=== PATIENT | female | born 1955 | race Two or more races ===

== ENCOUNTER 2017-01-13 08:12 | Outpatient (CLI) | payer OTHER ==
[2017-01-13] VITALS (16 sets, daily range): BP systolic 108–133; BP diastolic 59–81
[~2017-01-13] VITALS: Ht 165.1 cm; Wt 93.4 kg
[2017-01-13] MEDS ORDERED: OMEPRAZOLE20 M2 ORAL (08:56)
[2017-01-13] MEDS ORDERED: LEVOTHYROXINE100 MCG ORAL (08:56)
[2017-01-13] MEDS ORDERED: HUMALOG 75/255 UNIT1 SUBQ (08:56)
[2017-01-13] MEDS ORDERED: VITAMIN E400 INTLU ORAL (09:10)
[2017-01-13] MEDS ORDERED: fentaNYL 100 mcg/2 mL IV ONE (09:15)
[2017-01-13] MEDS ORDERED: Midazolam 2mg/2ml Inj IVP ONE (09:15)
[2017-01-13] MEDS ORDERED: Lidocaine 1% Plain 30 ml INJ ONE (09:15)
--- NOTE | 2017-01-13 09:39 | Pre-Procedure Note/Attestation ---
Pre-Procedure Note/Attestation Complete Prior to Procedure Planned Procedure: right Procedure Narrative: us guided core liver biopsy Indications for Procedure Pre-Operative Diagnosis: hep c Attestation I attest that I discussed the nature of the procedure; its benefits; risks and complications; and alternatives (and the risks and benefits of such alternatives ), prior to the procedure, with the patient (or the patient's legal mortician supplies sales representative). I attest that, if there was a reasonable possibility of needing a blood transfusion, the patient (or the patient's legal mortician supplies sales representative) was given the [facility] standardized written summary, pursuant to the Ayo Kaur Blood Safety Act ([place] Health and Safety Code # 1645, as amended). I attest that I re-evaluated the patient just prior to the surgery and that there has been no change in the patient's H&P, except as documented below: ABDI HARRINGTON M.D. Jan 13, 2017 09:39
--- NOTE | 2017-01-13 09:42 | Moderate Sedation - Procedural ---
Moderate Sedation HPI Home Medication Reported Medications Vitamin E (Vitamin E) 400 Unit Capsule, 400 INTLU ORAL DAILY, CAP 01/13/17 Insulin Human Lispro (Humalog) 100 Unit/1 Ml Vial, 25 UNITS SUBQ TID, #1 UNIT 0 Refills 01/13/17 Omeprazole (OMEPRAZOLE) 20 Mg Capsule.dr, 20 MG ORAL DAILY, CAP 01/13/17 Levothyroxine Sodium* (LEVOTHYROXINE SODIUM*) 100 Mcg Tablet, 100 MCG ORAL DAILY , TAB Take in the morning on an empty stomach, at least 30 minutes before food. 01/13/17 Patient History Allergies: Coded Allergies: No Known Allergies (Unverified , 01/13/17) PAST MEDICAL HISTORY: Past Surgeries: Social History: Pre-Procedural Mod Sedation Date: Jan 13, 2017 Pre-Assessment Time: 09:40 Pre-Sedation Assessment: Elective Airway Assessment (Malampati): III Heart: normal Lungs: normal Pre-op Diagnosis: nonalcoholic fatty liver disease Evaluation Hx of untoward rxns to mod sed: No Procedures/Plans: Radiology Plan for Moderate Sedation: Midazolam, Fentanyl ASA Score: II Informed Consent The nature of the procedure/sedation; its benefits; risks and complications; and alternatives (and the risks and benefits of such alternatives) were discussed with the patient (or their legal sales representative womens health), prior to the procedure. All questions were answered to the patient's (or their legal sales representative womens health's) satisfaction and the patient (or their legal sales representative womens health) gave informed consent to the procedure. I attest that I re-evaluated the patient just prior to the surgery and that there has been no change in the patient's H&P, except as documented below: ABDI HARRINGTON M.D. Jan 13, 2017 09:42
[2017-01-13] MEDS ORDERED: Norco 5mg/325mg tab ORAL PRN (12:30)
--- NOTE | 2017-01-13 15:10 | Diagnostic Imaging Report ---
Indication: Hepatitis C Procedure: Informed consent for the procedure was obtained. The risks, benefits, and alternatives to the procedure and conscious sedation were discussed with the patient. We were given verbal and written consent to proceed. The abdomen was prepped and draped in a sterile fashion. Lidocaine was administered for local anesthesia. Dermatotomy was made. Using real-time ultrasound guidance a 16-gauge biopsy device was advanced into the right lobe of the liver and a 2 cm core biopsy was performed. This was performed twice yielding a 1 cm core on the first pass and a 2 cm core on the second pass. There were no complications. The patient tolerated the procedure well. Impression: Status post successful ultrasound guided, nontargeted biopsy of the liver.
--- NOTE | 2017-01-13 16:34 | Diagnostic Imaging Report ---
Indication:Hepatitis C. Technique: Grayscale and duplex Doppler imaging of the abdomen performed. Comparison: None Findings: The liver is prominent in size measuring about 19 cm in the craniocaudal plane. The spleen is enlarged measuring 15 cm. There is no ascites. The liver is echogenic consistent with fatty filtration. High-resolution imaging of the liver surface utilizing high frequency imaging shows no micronodularities. No abnormalities of the gallbladder, demonstrated portion of the pancreas, kidneys identified. The aorta and pancreas are not visualized well due to bowel gas. CBD measures 6 mm. There is no intrahepatic biliary ductal dilatation seen. Impression: Hepatosplenomegaly with fatty infiltration of the liver. Poor demonstration of the pancreas, aorta and the remainder of the retroperitoneum due to bowel gas and body habitus.
== END 2017-01-13 14:30 | disposition home or self-care (01) ==
LOC: ULS 08:12
DX: K76.0 Fatty (change of) liver, not elsewhere classified (principal); R16.2 Hepatomegaly with splenomegaly, not elsewhere classified; B19.20 Unspecified viral hepatitis C without hepatic coma
CPT/HCPCS: 47000; 76700; 76942; J2001; J2250; J3010

== ENCOUNTER 2018-09-03 10:42 | Outpatient (CLI) | payer OTHER ==
[~2018-09-03 10:42] MED LIST: HUMALOG 75/255 UNIT1 SUBQ; LEVOTHYROXINE100 MCG ORAL; OMEPRAZOLE20 M2 ORAL; VITAMIN E400 INTLU ORAL
--- NOTE | 2018-09-03 12:25 | Diagnostic Imaging Report ---
Indication: Abdominal pain, history of hepatitis C Technique: Maradiaga-scale and duplex images of the upper abdomen were obtained. Doppler interrogation of the hepatic and pancreatic vessels Comparison: 01/13/2017 Findings: Gallbladder is unremarkable, without stones, wall thickening, nor pericholecystic fluid. Sonographic Wisdom's sign is negative. Common bile duct measures 5 mm in diameter. No intrahepatic biliary ductal dilatation. Liver demonstrates increased echogenicity. It demonstrates surface nodularity. The liver is slightly enlarged. No focal abnormality Portal vein and hepatic veins are patent. Pancreas is unremarkable. The spleen is enlarged, measuring 14.3 cm long axis dimension. Left kidney measures 11.9 cm in length. Right kidney measures 12.1 cm length. Both kidneys demonstrate normal echogenicity. There is no hydronephrosis. No focal abnormality . Abdominal aorta is partially obscured by bowel gas, visualized portions are non-aneurysmal . Impression: Somewhat enlarged liver. Increased echogenicity indicates hepatocellular disease. Surface nodularity suggests cirrhotic change. Note that the surface nodularity was not evident on the previous exam Negative for gallstones or dilated ducts Splenomegaly, also previously described Note nonvisualization of portions of the abdominal aorta
== END 2018-09-03 12:42 | disposition home or self-care (01) ==
LOC: ULS 10:42
DX: R10.9 Unspecified abdominal pain (principal); Z86.19 Personal history of other infectious and parasitic diseases; R16.0 Hepatomegaly, not elsewhere classified; R16.1 Splenomegaly, not elsewhere classified
CPT/HCPCS: 76700